=== PATIENT | male | born 1950 | race Caucasian/White ===

== ENCOUNTER 2017-02-18 17:20 | Inpatient (IN) | payer OTHER ==
[~2017-02-18] VITALS: Ht 170.2 cm; Wt 75.0 kg
--- NOTE | ~2017-02-18 | P ---
[facility] [place] [address] PROCEDURE REPORT Name: ALVARADO BRAN Debi Room #: 432-P [facility] IN .R.#: [id number] Admission: 02/18/17 Attend Phys: Seng Damian MD Discharge: Date of : 54 Report #: [id number] THIS REPORT FOR: //name// CC: Seng Morgan DO BRIEF HISTORY: The patient is a 66-year-old male who was admitted to [facility] with evidence of iron deficiency anemia and Hemoccult-positive stools. He has a markedly decreased hemoglobin at 6.7 and did receive blood transfusion. He was just started on iron last week. He is microcytic with an MCV of 76. He also recently had ventral hernia repair at [facility]. PREOPERATIVE DIAGNOSIS: Iron deficiency anemia. POSTOPERATIVE DIAGNOSES: 1. Hiatus hernia. 2. Gastritis, few scattered erosions. 3. Stomach deformity raising the question of the gastric volvulus. MEDICATIONS: Deep sedation with propofol per Anesthesia. SPECIMEN: 1. Small bowel biopsies rule out celiac disease. 2. Biopsies of gastritis. ESTIMATED BLOOD LOSS: 3 mL. PROCEDURE: EGD with biopsy. FINDINGS: Prior to propofol sedation, the procedure of upper endoscopy discussed with the patient as well as potential risks, benefits and complications. He indicates he understands and desires to proceed. DESCRIPTION OF PROCEDURE: With the patient in left lateral decubitus position, the Blue Nilei video endoscope was inserted in the cervical esophagus under direct vision without difficulty. Examination of this organ through its entire length revealed normal esophageal mucosa down the squamocolumnar junction. Squamocolumnar junction was noted to be unremarkable. The scope was advanced, and there appeared to be about a 2-3 cm sliding type hiatus hernia. It is also noted that the gastroesophageal junction was at about 42 cm. The scope was advanced into the stomach, which was examined on end view as well as retroflexed views. Initially upon entering the stomach, we appeared to enter into a large cavity area. The outlet of the segment of the stomach was not well visualized, and with difficulty, we were able to advance the scope into the distal stomach. Initially, I thought we may be dealing with a large hiatus hernia, but the GE junction appears to be at appropriate position, and there appeared to be a small [facility] [address] [place] [address] PROCEDURE REPORT Name: ALVARADO BRAN Room #: 432-P [facility] IN ..#: [id number] Admission: 02/18/17 Attend Phys: Seng Damian MD Discharge: Date of : 54 Report #: [id number] sliding type hiatus hernia. I am suspicious he may have a gastric volvulus. The scope was advanced in the distal stomach, and there was erythema and a few scattered erosions. No blood was seen. No ulcers were seen. Bleeding lesions were not seen. Upon retroflexion, I was able to see up into the cardia of the stomach and the GE junction. However, when I withdrew the scope back into the proximal stomach, we had considerable difficulty finding the distal stomach. We were able to advance the scope back into the distal stomach. The pylorus, duodenal bulb and postbulbar sweep were inspected and noted to be within normal limits. Due to his iron deficiency anemia, multiple biopsies were obtained to evaluate for celiac disease. Scope was drawn back in the stomach. Multiple biopsies obtained to evaluate for gastritis to evaluate for H. pylori. Scope was withdrawn. The patient tolerated the procedure well. DISPOSITION: The patient with iron deficiency anemia. I am suspicious he may have a gastric volvulus. Another consideration is this could be a large hiatus hernia, which was not recognized endoscopically. We will follow up on biopsies obtained today. We will proceed with CT scan of the abdomen to evaluate for volvulus or large hiatus hernia. In addition, we will try to obtain records from his recent colonoscopy. I do not see an obvious bleeding lesion on exam today. However, large hiatus hernia or gastric volvulus could be associated iron deficiency anemia, although an obvious source was not noted today. Depending on outside records, he may require another colonoscopy. Continue PPI at this point in time. <ELECTRONICALLY SIGNED> By: Yaron Davalos MD 02/19/17 1749 [id number] [id number] aYron Davalos MD /nt
--- NOTE | ~2017-02-18 | EKG ---
[address] [address] ELECTROCARDIOGRAM REPORT Name: ALVARADO BRAN Room #: 432-P ADM IN M.R.#: [id number] Admission: 02/18/17 Attend Phys: Seng Damian MD Discharge: Date of : 54 Report #: [id number] THIS REPORT FOR: //name// [facility] ED Test Date: 2017-02-18 Test Time: 17:56:10 Pat Name: ALVARADO BRAN Department: Room: [facility] Gender: M Undergraduate Advisor: Ilya CARTER : 1950 Requested By: Gunnar Royal Order Number: [id number] MD: Enrique lPaza Measurements Intervals [place] Rate: 75 P: 89 [place]: 154 QRS: 35 QRSD: 100 T: 7 QT: 404 QTc: 452 Interpretive Statements Sinus rhythm Borderline low voltage, extremity leads Compared to ECG 11/15/2013 08:44:14 T-wave abnormality no longer present Prolonged QT interval no longer present Electronically Signed On 02-19-2017 8:07:04 CDT by Enrique Plaza [email or web address] <ELECTRONICALLY SIGNED> By: Enrique Plaza MD 02/19/17 0807 55 55 Enrique Plaza MD /EPI
--- NOTE | ~2017-02-18 | S ---
[facility] [place] [address] SURGICAL PATH RPT PROCEDURE Name: ALVARADO BRAN Room #: 432-P ADM IN M.R.#: [id number] Admission: 02/18/17 Date of : 54 Discharge: Report #: [id number] Path Case #: [id number] PATHOLOGY REPORT COLLECTION DATE: 02/18/2017 RECEIVED DATE: 02/19/2017 SUBMITTING PHYS: Dr. Yaron Davalos OTHER PHYS: Dr. Mathieu Kapoor SPECIMEN(S) RECEIVED: A.Small bowel B.Gastric * * * * * * * * * * * * FINAL DIAGNOSIS: A. Small bowel mucosa, rule out celiac disease, endoscopic biopsy: - No diagnostic abnormalities present. B. Gastric mucosa, gastritis, endoscopic biopsy: - Mild reactive gastropathy. - Negative for intestinal metaplasia or atrophy. - Negative for Helicobacter pylori. COMMENT: Helicobacter pylori immunohistochemical stain performed on block B1-negative. (IUV:mgr; 02/20/2017) PATHOLOGIST: Miriam Woods M.D. REPORT ELECTRONICALLY SIGNED BY: Miriam Woods M.D. DATE/TIME: 02/20/2017 16:45 * * * * * * * * * * * * GROSS PATHOLOGY: A. Received in formalin labeled "Alvarado Bran, BX small bowel r/o celiac disease," are 5 segments of sanchez soft tissue measuring 1.4 x 0.7 x 0.4 cm in aggregate dimensions and ranging from 0.3 to 0.5 cm in maximum dimension. The specimen is submitted entirely in cassette A1. B. Received in formalin labeled "Alvarado Bran, BX gastritis," are 3 segments of sanchez soft tissue measuring 1.4 x 0.5 x 0.3 cm in aggregate dimensions and ranging from 0.4 to 0.5 cm in maximum dimension. The specimen is submitted entirely in cassette B1. (TSD; 02/19/2017) [address] [address] SURGICAL PATH RPT PROCEDURE Name: ALVARADO BRAN Room #: 432-P [facility] IN [facility].#: [id number] Admission: 02/18/17 Date of : 54 Discharge: Report #: [id number] Path Case #: [id number] CLINICAL HISTORY: Pre-OP DX: GI bleed Post-OP DX: Hiatal hernia, gastritis INITIAL CPT CODE(S): A; 29976 B; 98588, 11200 Professional services performed by [facility] at [address], [place] [address] Technical services performed by [facility] at [address] [place] [address], [facility] [address] [address]. [facility] [address] [place] [address] PHONE: [phone] DIRECTOR: Anam Paul M.D. * * * END OF REPORT * * *
[~2017-02-18 17:20] MED LIST: ACETAMINOPHEN650 M5 PO; ADULT LOW DOSE81 MG PO; ASPIRIN325 PO; BAYER CHEWABLE81 MG PO; BYETTA SQ; CENTRUM SILVER1 EAC4 PO; DARVOCET-N 1001 EACH PO; EFFIENT10 MG PO; GLUCOPHAGE500 MG PO; LANTUS SQ; LIDODERM 5%1 PATCH; LISINOPRIL20 MG PO; LOPRESSOR 50 MG50 M1 PO; Lisinopril PO; Metoprolol PO; NITROGLYCERIN0.4 MG SL; NOVOLOG100 UNIT/1 SQ; PLAVIX 75 MG TA75 M1 PO; PLAVIX 75 MG TA75 MG PO; SIMVASTATIN80 MG PO; TOPROL XL50 MG PO
[2017-02-18 17:25] VITALS: BP 152/68
[2017-02-18] MEDS ORDERED: AMLODIPINE BESY10 MG PO (17:31)
[2017-02-18] MEDS ORDERED: ATORVASTATIN CA40 MG PO (17:31)
[2017-02-18] MEDS ORDERED: COLACE100 MG PO (17:32)
[2017-02-18] MEDS ORDERED: FLOMAX0.4 MG PO (17:32)
[2017-02-18] MEDS ORDERED: IRON325 PO (17:32)
[2017-02-18] MEDS ORDERED: NORCO 5-325 TA1 EACH PO (17:32)
[2017-02-18] MEDS ORDERED: IMDUR 60 MG TAB60 M1 PO (17:33)
[2017-02-18] MEDS ORDERED: LANTUS SUBQ (17:33)
[2017-02-18] MEDS ORDERED: LOPRESSOR100 M1 PO (17:34)
[2017-02-18] MEDS ORDERED: PROTONIX40 M1 PO (17:34)
[2017-02-18 18:45] LABS: ABSOLUTE NEUTROPHILS 6.7 thou/uL (1.4-8.2); HEMOGLOBIN 6.7 gm/dL (14.0-18.0)
[2017-02-18 18:47] LABS: BASOPHILS 1.1 % (0.0-2.0); EOSINOPHILS 4.6 % (0.0-3.0); HEMATOCRIT 20.1 % (42.0-52.0); LYMPHOCYTES 25.5 % (24.0-44.0); MCH 25.2 pg (26.0-34.0); MCHC 33.1 g/dL (28.0-37.0); MCV 76.1 fL (80.0-100.0); MONOCYTES 6.5 % (1.0-8.0); PLATELET COUNT 498 thou/uL (150-400); POLYS 62.3 % (36.0-66.0); RBC 2.65 mil/uL (4.50-6.00); RDW 17.7 % (10.5-14.5); WBC 10.7 thou/uL (4.0-11.0)
[2017-02-18 18:49] LABS: MANUAL DIFF NO
[2017-02-18 18:54] LABS: ANION GAP 5 mmol/L (7-16); BUN 17 mg/dL (7-18); CALCIUM 8.8 mg/dL (8.5-10.1); CHLORIDE 107 mmol/L (98-107); CO2 26 mmol/L (21-32); CREATININE 0.9 mg/dL (0.7-1.3); GLUCOSE 202 mg/dL (74-106); POTASSIUM 4.1 mmol/L (3.5-5.1); SODIUM 138 mmol/L (136-145)
[2017-02-18 19:01] LABS: APTT 26.1 Seconds (24.5-32.8)
[2017-02-18 19:03] LABS: TROPONIN-I < 0.04 ng/mL (<0.04-0.07)
[2017-02-18 20:40] VITALS: BP 126/55
[2017-02-18 21:03] VITALS: BP 147/77
[2017-02-19 01:51] VITALS: BP 129/61; BP 141/75
[2017-02-19 04:15] VITALS: BP 149/60; BP 155/78; BP 159/77
[2017-02-19 07:58] VITALS: BP 156/72
[2017-02-19 12:36] LABS: HEMATOCRIT 26.1 % (42.0-52.0); MCH 26.6 pg (26.0-34.0); MCHC 33.6 g/dL (28.0-37.0); MCV 79.2 fL (80.0-100.0); RBC 3.3 mil/uL (4.50-6.00); RDW 18.3 % (10.5-14.5); WBC 9.5 thou/uL (4.0-11.0)
[2017-02-19 12:38] LABS: HEMOGLOBIN 8.8 gm/dL (14.0-18.0)
[2017-02-19 12:45] LABS: CALCIUM 8.4 mg/dL (8.5-10.1); CREATININE 0.7 mg/dL (0.7-1.3); POTASSIUM 3.7 mmol/L (3.5-5.1)
[2017-02-19 16:54] VITALS: BP 162/77
[2017-02-19 21:30] VITALS: BP 173/94
[2017-02-20 04:05] VITALS: BP 169/74
[2017-02-20 07:20] VITALS: BP 164/84
[2017-02-20 10:00] LABS: HEMATOCRIT 27.7 % (42.0-52.0); HEMOGLOBIN 9.2 gm/dL (14.0-18.0); MCHC 33.3 g/dL (28.0-37.0); RBC 3.55 mil/uL (4.50-6.00); WBC 8.5 thou/uL (4.0-11.0)
[2017-02-20 10:09] LABS: CALCIUM 8.5 mg/dL (8.5-10.1); CREATININE 0.8 mg/dL (0.7-1.3); MAGNESIUM 1.8 mg/dL (1.8-2.4); POTASSIUM 3.6 mmol/L (3.5-5.1)
[2017-02-20 16:42] VITALS: BP 171/85
[2017-02-20 20:21] VITALS: BP 177/95
[2017-02-21 03:43] VITALS: BP 147/80
[2017-02-21 08:08] LABS: HEMATOCRIT 24.7 % (42.0-52.0); HEMOGLOBIN 8.4 gm/dL (14.0-18.0); MCH 26.5 pg (26.0-34.0); MCHC 33.9 g/dL (28.0-37.0); RBC 3.16 mil/uL (4.50-6.00); RDW 18.5 % (10.5-14.5); WBC 7.5 thou/uL (4.0-11.0)
[2017-02-21 08:20] LABS: CALCIUM 8.3 mg/dL (8.5-10.1); MAGNESIUM 1.7 mg/dL (1.8-2.4); POTASSIUM 3.5 mmol/L (3.5-5.1)
[2017-02-21 08:31] LABS: CREATININE 0.7 mg/dL (0.7-1.3)
[2017-02-21 08:44] VITALS: BP 165/74
[2017-02-21 14:38] LABS: HEMATOCRIT 28.8 % (42.0-52.0); HEMOGLOBIN 9.5 gm/dL (14.0-18.0); MCH 25.8 pg (26.0-34.0); MCHC 32.9 g/dL (28.0-37.0); MCV 78.4 fL (80.0-100.0); RBC 3.68 mil/uL (4.50-6.00); RDW 18.4 % (10.5-14.5); WBC 7.9 thou/uL (4.0-11.0)
[2017-02-21 15:49] VITALS: BP 182/90
[2017-02-21 20:00] VITALS: BP 172/85
[2017-02-22 04:30] VITALS: BP 187/101
[2017-02-22 06:06] LABS: HEMATOCRIT 27.8 % (42.0-52.0); HEMOGLOBIN 9.2 gm/dL (14.0-18.0); MCH 26.1 pg (26.0-34.0); MCHC 33.2 g/dL (28.0-37.0); MCV 78.6 fL (80.0-100.0); RBC 3.54 mil/uL (4.50-6.00); RDW 18.4 % (10.5-14.5); WBC 7.5 thou/uL (4.0-11.0)
[2017-02-22 06:24] LABS: CALCIUM 8.4 mg/dL (8.5-10.1); CREATININE 0.9 mg/dL (0.7-1.3); MAGNESIUM 1.8 mg/dL (1.8-2.4); POTASSIUM 3.5 mmol/L (3.5-5.1)
[2017-02-22 08:00] VITALS: BP 160/82
[2017-02-22] MEDS ORDERED: HUMALOG100 UNIT/1 SUBQ (14:11)
[2017-02-22] MEDS ORDERED: ASPIR 8181 MG PO (14:13)
[2017-02-22 16:00] VITALS: BP 155/80
== END 2017-02-22 16:57 | DRG 391 ==
LOC: ER 17:20 → EROBS 20:15 → 4E 20:15
PROVIDERS: Emergency Medicine; Internal Medicine; Nurse Practitioner Family
PROC: 0DB68ZX Excision of Stomach, Via Natural or Artificial Opening Endoscopic, Diagnostic (ICD-10-PCS; principal; 2017-02-19)
PROC: 0DB88ZX Excision of Small Intestine, Via Natural or Artificial Opening Endoscopic, Diagnostic (ICD-10-PCS; principal; 2017-02-19)
PROC: 30233N1 Transfusion of Nonautologous Red Blood Cells into Peripheral Vein, Percutaneous Approach (ICD-10-PCS; principal; 2017-02-19)
DX: K31.89 Other diseases of stomach and duodenum (principal); K29.71 Gastritis, unspecified, with bleeding; D62 Acute posthemorrhagic anemia; K44.9 Diaphragmatic hernia without obstruction or gangrene; M19.90 Unspecified osteoarthritis, unspecified site; J45.909 Unspecified asthma, uncomplicated; K21.9 Gastro-esophageal reflux disease without esophagitis; F32.9 Major depressive disorder, single episode, unspecified; E78.00 Pure hypercholesterolemia, unspecified; K80.20 Calculus of gallbladder without cholecystitis without obstruction; N32.89 Other specified disorders of bladder; E11.9 Type 2 diabetes mellitus without complications; F17.210 Nicotine dependence, cigarettes, uncomplicated; I25.10 Atherosclerotic heart disease of native coronary artery without angina pectoris; Z95.5 Presence of coronary angioplasty implant and graft; Z79.4 Long term (current) use of insulin; Z79.02 Long term (current) use of antithrombotics/antiplatelets; Z79.82 Long term (current) use of aspirin; Z79.899 Other long term (current) drug therapy; Z23 Encounter for immunization
CPT/HCPCS: 10183; 62110; 62900; 70005